=== PATIENT | female | born 1960 | race Two or more races ===

== ENCOUNTER → 2023-05-05 23:59 | Outpatient (BNV) | payer OTHER, SELFPAY | PROVIDERS: Visit Provider Internal Medicine Cardiovascular Disease | DX: I21.21 ST elevation (STEMI) myocardial infarction involving left circumflex coronary artery (principal) | CPT/HCPCS: 92941; 93458; 99152 ==

== ENCOUNTER 2023-05-27 13:28 | Outpatient (AMB) | payer OTHER, SELFPAY ==
[2023-05-27 13:52] VITALS: BP 114/62; PULSE 76; BMI 25.8
--- NOTE | 2023-05-27 13:52 | MHC.OFFVIS ---
Intake Vital Signs 05/27/23 13:52 Height 5 ft 6 in Weight 160 lb 0.889 oz BMI 25.8 BP 114/62 Blood Pressure Location Lt brachial Position Sitting Pulse 76 Pulse Source Pulse Oximeter Intake Visit Reasons: [facility] zackery ([place]) Liability Analyst Required: Yes Liability Analyst Language: System Safety Engineer Name: kandi meza [id number] Allergies No Known Allergies Allergy (Verified 05/27/23 13:59) Medication List - Last Reconciled 05/27/23 by Amanda Quintero NP-C aspirin 81 mg PO DAILY atorvastatin 80 mg PO DAILY colchicine 0.6 mg PO DAILY lisinopril 40 mg PO DAILY metformin ER 500 mg PO DAILY metoprolol succinate ER 50 mg PO DAILY nicotine 1 patch transdermal Q24H ticagrelor 90 mg PO BID HPI [facility] zackery ([place]) HPI Details Nida is a 62-year-old female with past medical history of hypertension, hyperlipidemia, smoking who recently presented to [facility] with chest discomfort and ruled in for inferior lateral STEMI. She was taken to laborer [facility] and found to have significant coronary artery disease with left circumflex as the culprit lesion, JOHN was placed. She was started on appropriate medications and now presents for follow-up. Today she reports she has been doing well since her hospital discharge. She has not had any recurrent chest discomfort since her HI. She states that felt like a strong pain in her mid chest. Doing well with No shortness of breath, palpitations, presyncope, syncope, PND, orthopnea or edema. No bleeding issues with aspirin and Brilinta. Taking all meds as directed. Tells me she quit smoking following her HI. [facility] Medical History (Updated 05/27/23 @ 17:18 by Amanda Quintero NP-C) Hyperlipidemia HTN (hypertension) AAA (abdominal aortic aneurysm) Social History (Updated 05/27/23 @ 16:47 by Amanda Quintero NP-C) Patient Tobacco Use Status: Former Tobacco user Quit Date: post HI 05/05/23 Review of Systems Const All systems reviewed & are unremarkable except as noted in HPI and below ENT Denies dizziness Card Denies chest pain, Denies chest pain at rest, Denies chest pain with activity, Denies rapid heart rate, Denies pedal edema, Denies edema, Denies leg edema, Denies lightheadedness, Denies palpitations, Denies dyspnea, Denies dyspnea on exertion and Denies orthopnea Resp Denies cough, Denies dyspnea and Denies dyspnea on exertion GI Denies hematochezia and Denies change in stool character Musc Denies abnormal gait, Denies limited range of motion, Denies muscle cramps, Denies muscle weakness, Denies numbness, Denies radiating pain into limb, Denies stiffness and Denies tingling Neuro Denies abnormal gait, Denies dizziness, Denies numbness and Denies tingling Endo Denies palpitations Physical Exam Vital Signs: Last Vital Signs Pulse 76 05/27/23 13:52 BP 114/62 05/27/23 13:52 BMI result Body Mass Index 25.8 Const General: cooperative, healthy appearing, comfortable and no acute distress Orientation/consciousness: patient oriented x3 Neck Neck: Yes normal visual inspection Resp Effort & Inspection: normal respiratory effort Auscultation: clear to auscultation bilaterally, no crackles, no rales, no rhonchi and no wheezes Cardio Jugular venous distension: no JVD Rate: regular rate Rhythm: regular rhythm Heart sounds: S1 normal heart sound present, S2 normal heart sound present, no murmurs and no rubs Neuro General: patient oriented x3 Extrem Other: right radial cath site well healed. easily palpable radial pulse, right hand assessment normal General: Yes normal to inspection Psych Appearance: grossly normal Mental Status: mental status grossly normal Speech and movement: Normal speech and movement present Assessment & Plan Assessment & Plan (1) STEMI (ST elevation myocardial infarction): Code(s): I21.3 - ST elevation (STEMI) myocardial infarction of unspecified site Qualifiers: Involved coronary artery: left circumflex coronary artery Qualified Code(s): I21.21 - ST elevation (STEMI) myocardial infarction involving left circumflex coronary artery Plan: Inferior lateral STEMI 05/05/2023. Cardiac catheterization showing significant 3 vessel coronary artery disease, left circumflex was the culprit lesion with mid stenosis 90%, JOHN placed. She does have residual mid LAD 70% stenosis and proximal RCA 70% stenosis. Will obtain echo results from [facility]. She is currently being treated medically. She denies any anginal symptoms. She quit smoking. Declines cardiac rehab due to issues with transportation. Will ever continue aspirin indefinitely. Continue Brilinta uninterrupted for at least 1 year. Continue high-dose atorvastatin with ideal LDL goal less than 70. Continue metoprolol XL and lisinopril. She is on colchicine and states that was added for chest discomfort. No med changes made at this time. Signs and symptoms of angina reviewed. Cardiology follow-up in 3 months, sooner if needed (2) CAD (coronary artery disease): Code(s): I25.10 - Atherosclerotic heart disease of [place] coronary artery without angina pectoris Qualifiers: Coronary Disease-Associated Artery/Lesion type: [place] artery [place] vs. transplanted heart: [place] heart Associated angina: without angina Qualified Code(s): I25.10 - Atherosclerotic heart disease of [place] coronary artery without angina pectoris Plan: As above (3) HTN (hypertension): Code(s): I10 - Essential (primary) hypertension Qualifiers: Hypertension type: primary hypertension Qualified Code(s): I10 - Essential (primary) hypertension Plan: Well controlled at this time. No med changes made (4) Hyperlipidemia: Code(s): E78.5 - Hyperlipidemia, unspecified Qualifiers: Hyperlipidemia type: unspecified Qualified Code(s): E78.5 - Hyperlipidemia, unspecified Plan: [place] LDL goal less than 70. No recent lipid profile for review. She tells me she just had labs drawn at [place], will work on obtaining. Continue on high-dose atorvastatin (5) S/P cardiac cath: Comment: 05/05/2023, left main normal, mid LAD 70% stenosis, left circumflex mid 90% stenosis, culprit lesion, JOHN placed, proximal RCA 70% stenosis Code(s): Z98.890 - Other specified postprocedural states (6) Smoking: Code(s): F17.200 - Nicotine dependence, unspecified, uncomplicated Plan: Quit following her HI 05/05/2023, applauded on this Plan Time spent on chart review, documentation, interview and assessment Coding Level of Care Code Est Pt Level 4 (09289) Diagnoses ST elevation myocardial infarction involving left circumflex coronary artery I21.21 Involved coronary artery: left circumflex coronary artery Coronary artery disease involving [place] coronary artery of [place] heart without angina pectoris I25.10 Coronary Disease-Associated Artery/Lesion type: [place] artery [place] vs. transplanted heart: [place] heart Associated angina: without angina Primary hypertension I10 Hypertension type: primary hypertension Hyperlipidemia, unspecified hyperlipidemia type E78.5 Hyperlipidemia type: unspecified S/P cardiac cath Z98.890 Smoking F17.200 Time Spent (min) 28
== END 2023-05-27 14:34 | disposition home or self-care (01) ==
PROVIDERS: Visit Provider Nurse Practitioner Family
DX: I21.21 ST elevation (STEMI) myocardial infarction involving left circumflex coronary artery (principal); I25.10 Atherosclerotic heart disease of native coronary artery without angina pectoris; I10 Essential (primary) hypertension; E78.5 Hyperlipidemia, unspecified; Z98.890 Other specified postprocedural states; F17.200 Nicotine dependence, unspecified, uncomplicated
CPT/HCPCS: 99214

== ENCOUNTER → 2023-05-27 13:28 | Outpatient (BNVA) | payer OTHER, SELFPAY | PROVIDERS: Visit Provider Nurse Practitioner Family | DX: I21.21 ST elevation (STEMI) myocardial infarction involving left circumflex coronary artery (principal); I25.10 Atherosclerotic heart disease of native coronary artery without angina pectoris; I10 Essential (primary) hypertension; E78.5 Hyperlipidemia, unspecified; Z87.891 Personal history of nicotine dependence | CPT/HCPCS: 99212 ==